=== PATIENT | female | born 1945 | race Caucasian/White ===

== ENCOUNTER 2018-06-16 05:36 | Inpatient (IN) ==
[2018-06-16] MEDS ORDERED: Chlorhexidine Gluconate 2% 1 Pack (2 Cloths) TOPICAL SCH (06:30)
[2018-06-16] MEDS ORDERED: Metoprolol Tartrate 25 MG Tablet PO SCH (06:30)
[2018-06-16] MEDS ORDERED: ceFAZolin 2 GM Premix Inj 2 GM/50 ML PIGGYBACK IV.SIG SCH (07:00)
[2018-06-16] MEDS ORDERED: Sodium Chlor 0.9% Inj 500 ML IV.SIG SCH (07:00)
[2018-06-16] MEDS ORDERED: Vancomycin Inj 1 GM/200 ML PIGGYBACK IV.SIG SCH (07:00)
[2018-06-16] MEDS ORDERED: Bupivacaine/Dextrose 0.75% Inj 2 ML Ampul ONE (07:04)
[2018-06-16] MEDS ORDERED: Famotidine PF Inj 20 MG/2 ML Vial ONE (07:09)
[2018-06-16] MEDS ORDERED: Sodium Chlor 0.9% Inj 60 ML, Bupivacaine Liposo PF 1.3% Inj 20 ML P-ARTICULR SCH ×2 (07:30)
[2018-06-16] MEDS ORDERED: TRANEXAMIC ACID IV.SIG SCH ×2 (07:30→10:30)
[2018-06-16] MEDS ORDERED: SODIUM CHLOR 0.9% IV.SIG SCH ×2 (07:30→10:30)
[2018-06-16] MEDS ORDERED: Post-op Orders (for Pharmacy) OTHER STA (09:52)
[2018-06-16] MEDS ORDERED: Bisacodyl 10 MG Supp RECTAL PRN (09:52)
[2018-06-16] MEDS ORDERED: Aluminum/Magnesium/Simethacone Susp 30 ML UDC PO PRN (09:52)
[2018-06-16] MEDS ORDERED: Tranexamic Acid Inj 1,000 MG in Sodium Chlor 0.9% Inj 100 ML IV.SIG ONE (09:52)
[2018-06-16] MEDS ORDERED: Naloxone Inj 0.4 MG/ML Vial IV.PUSH PRN ×2 (09:52→09:59)
[2018-06-16] MEDS ORDERED: Morphine Inj 30 MG/30 ML PCA.VIAL PCA PRN (09:59)
[2018-06-16] MEDS ORDERED: *morphine SULFATE 4 MG/ML PERIprocedure ONLY ONE (10:28)
[2018-06-16] MEDS ORDERED: Morphine Inj 30 MG/30 ML PCA.VIAL PCA ONE (10:39)
[2018-06-16] MEDS: Sod Chloride 0.9% Inj 1,000 ML IV.CONT SCH ×2 (10:56→18:21)
--- NOTE | 2018-06-16 11:20 | XR ---
EXAM DATE: 06/16/2018 11:17 AM EDT AGE/SEX: 72 years / Female INDICATIONS: Post op left total hip replacement. CLINICAL DATA: This is the patient's initial encounter. Patient reports that signs and symptoms have been present for 1 day and indicates a pain score of Nonresponsive. MEDICAL/SURGICAL HISTORY: Non-responsive. Non-responsive. COMPARISON: POI, MR HIP W/O CONTRAST, LEFT, 06/23/2016. . FINDINGS: Hip arthroplasty is in satisfactory position. The alignment is anatomic. CONCLUSION: Postsurgical changes as above. Electronically signed by: Cong Roberto MD 06/16/2018 11:19 AM EDT
[2018-06-16] MEDS: Ketorolac Inj 30 MG/ML (IVP) Vial IV.PUSH SCH ×2 (11:32→18:19)
--- NOTE | 2018-06-16 11:46 | MH ---
cc: Baldomero Madrid MD DATE OF ADMISSION: 06/16/2018 DIAGNOSIS: End-stage osteoarthritis, left hip. HISTORY OF PRESENT ILLNESS: She has had a problem with this left hip for quite a long time, with x-rays and MRI showing significant changes. She has consistently refused fluoroscopic-guided steroid injections. I have been following her for over 2 years. She has been managing with NSAIDs and [id number] medications. She presented to me recently, indicating that she could not get along with it any more. She has severe pain, she had to use a cane, and she had a distinct limp on this leg. X-rays revealed end-stage osteoarthritis. After informed consent, she is being brought here for a total hip replacement arthroplasty of the left hip. PAST HISTORY: History of hyperlipidemia, high blood pressure, arthritis, partial rotator cuff surgery, right shoulder done a few years ago by the undersigned, and she did very well from that. ALLERGIES: NO ALLERGIES. MEDICATIONS: She is on a blood pressure medication, calcium pill, and vitamins. SOCIAL HISTORY: She is retired. The diagnosis and the contemplated procedure and the potential risks, hazards, complications and expected results have all been discussed with the patient. Informed consent obtained. No guarantees made. PHYSICAL EXAMINATION: GENERAL: Reveals a 5 feet 6 inches tall, 170-pound white female who has distinct limp on the right leg. EXTREMITIES: She has mild, about 1/4 inch shortening of the right lower extremity, but that could be from pelvic tilt also. There is a significant pain on range of motion left lower extremity, but flexion can be done to about 80-90 degrees, but no rotation. She has palpable pedal pulses in the left foot, and she moves the toes well. HEENT: Head normocephalic. She wears glasses. Pupils react to light. Face symmetrical. HEART: Regular rate and rhythm. No murmurs. LUNGS: Clear to auscultation. ABDOMEN: Soft and supple. The diagnosis, the treatment, the prognosis, and the postoperative care, posthospital care, including intermediate facility, especially at her request because she lives alone, and prophylactic anticoagulation, etc., have all been discussed. MD BALWINDER Hinds/arianna/chidi , 10:26 AM , 10:35 AM
[2018-06-16] MEDS: ceFAZolin 2 GM Premix Inj 2 GM/50 ML PIGGYBACK IV.SIG SCH ×2 (12:36→18:05)
--- NOTE | 2018-06-16 12:37 | MP ---
cc: Baldomero Madrid MD DATE OF OPERATION: 06/16/2018 PREOPERATIVE DIAGNOSIS: Osteoarthritis, left hip. POSTOPERATIVE DIAGNOSIS: Osteoarthritis, left hip. OPERATIVE PROCEDURE: Total hip replacement arthroplasty, left hip, using Jerry Biomet components as follows: 1. Cup 56 mm with dome holes with 2 screws. 2. A 36 mm high wall liner. 3. A 13 mm standard offset Taperloc stem. 4. A 36 mm ceramic head with -3 neck length. SURGEON: Julius Alexandre MD ANESTHESIA: General. DESCRIPTION OF PROCEDURE: After induction of general anesthesia, the patient was placed in the left lateral position supported with Biomet positioners. Strict lateral position was ascertained. Axillary roll was placed. The right leg and the upper extremities were well protected. Left hip and left lower extremity thoroughly prepped with alcohol and ChloraPrep and draped in routine fashion, including adherent drapes. A standard lateral incision was made for a posterior approach. Incision deepened through subcutaneous tissue and then through the fascia and the fibers of the gluteus chris were . Bursa was dissected, followed by introduction of a Charnley retractor. Hip was internally rotated. The short external rotators and capsule were cut in a single cuff in an inverted L-shaped fashion with the vertical limb of the L along the intertrochanteric line and the horizontal one superior to the piriformis tendon. Hemostasis obtained with cautery. There was some old blood in the hip joint. The gluteus medius was elevated off the acetabulum and a 764 Steinmann pin was introduced, with the pin placed vertical to floor of the operating room and then the pin bent to 90 degrees to measure length and offset over the predetermined star on the greater trochanter. Hip was dislocated followed by femoral neck osteotomy, about 10-15 mm proximal to the lesser trochanter. Acetabulum was exposed. A limited capsulectomy and excision of the labrum and synovial tissue was carried out. The patient did have hypertrophic synovial tissue, indicating there is probably just an inflammatory component to this arthritis. Confines of the acetabulum were ascertained followed by reaming to 55 mm reamer, exposing bleeding subchondral bone. The cup was then impacted and placed in 45 degrees of abduction, 10 degrees anteversion and 2 dome screws were placed. The socket was cleaned out and a high wall liner impacted in place with the buildup posterior-superior. The femur was now prepared following routine technique of using a [employer] cutter canal finder and broaches and lateralizer. A 13 mm broach was introduced. Calcar reamer was used and trial reduction carried out with a -3 head, which gave good position and alignment, stability, and about 4 mm loss of offset and 4 mm of lengthening. Hip was dislocated, followed by introduction of a 13 mm stem in about 20 degrees anteversion and then reducing the hip with a ceramic 36 mm -3 head. Final position and alignment, stability, leg lengths were all good. The wound was irrigated with saline solution, followed by reapproximation of the cuff, the posterior capsule and short rotators with the first stitch placed at the gluteus medius attachment to the greater trochanter with a #2 Vicryl, and the second stitch placed through bone through a drill hole getting good repair. The wound was irrigated with saline solution. There was satisfactory hemostasis. The fascia was closed with a couple of interrupted #2 Vicryl sutures and then a running #2 Quill. The subcutaneous tissue was closed with 2-0 Vicryl and skin with 3-0 subcuticular Quill and Steri-Strips. Dressing applied with 4 x 4s, ABD, Medipore tape. The patient transferred to recovery room in satisfactory condition with an abduction pillow. The patient tolerated the procedure well. TRANSFUSIONS AND COMPLICATIONS: None. POSTOPERATIVE CONDITION: Satisfactory. PROGNOSIS: Good. ESTIMATED BLOOD LOSS: 350 mL MD BALWINDER Hinds/brody/chidi , 10:07 AM , 10:16 AM
[2018-06-16] MEDS ORDERED: fentaNYL Citrate Inj 100 MCG/2 ML Ampul ONE (14:00)
[2018-06-16] MEDS: Vancomycin Inj 1,000 MG in Sodium Chlor 0.9% Inj 250 ML IV.SIG SCH (20:30)
[2018-06-16] MEDS: Senna/Docusate Sodium 8.6/50 MG Tablet PO SCH (20:31)
[2018-06-17] MEDS: ceFAZolin 2 GM Premix Inj 2 GM/50 ML PIGGYBACK IV.SIG SCH (00:06)
[2018-06-17] MEDS: Ketorolac Inj 30 MG/ML (IVP) Vial IV.PUSH SCH ×5 (00:06→23:07)
[2018-06-17] MEDS: Sod Chloride 0.9% Inj 1,000 ML IV.CONT SCH ×3 (03:44→18:21)
[2018-06-17 05:20] LABS: Hematocrit 24.7 % (35.0-46.0); Hemoglobin 8.3 gm/dL (11.6-15.3)
[2018-06-17 05:59] LABS: Calcium 7.3 mg/dL (8.5-10.1); Carbon Dioxide 26.3 meq/L (21.0-32.0); Potassium 4.4 meq/L (3.5-5.1)
[2018-06-17 06:12] LABS: Total Protein 5.1 g/dL (6.4-8.2)
--- NOTE | 2018-06-17 07:35 | P.PNOP ---
Subjective Interval history: Doing well with no specific complaints Physical Exam Vital signs: Vital Signs 06/16/18 10:17 06/16/18 10:30 06/16/18 10:45 Temperature 96.1 F L Pulse Rate 85 77 77 Respiratory Rate 24 24 23 Blood Pressure 139/63 137/66 157/71 H Pulse Oximetry 100 100 100 06/16/18 11:00 06/16/18 11:15 06/16/18 11:30 Temperature 96.7 F L Pulse Rate 74 78 79 Respiratory Rate 14 16 16 Blood Pressure 159/74 H 148/69 H 145/70 H Pulse Oximetry 100 100 99 06/16/18 11:45 06/16/18 12:00 06/16/18 13:00 Temperature 96.8 F L 97.5 F L Pulse Rate 83 83 86 Respiratory Rate 18 16 17 Blood Pressure 143/70 H 144/74 H 155/70 H Pulse Oximetry 99 99 97 06/16/18 14:00 06/16/18 15:00 06/16/18 16:00 Temperature 97.9 F 97.9 F 98.7 F Pulse Rate 95 H 95 H 88 Respiratory Rate 20 20 17 Blood Pressure 132/91 H 144/57 H 166/78 H Pulse Oximetry 94 L 96 100 06/16/18 20:00 06/16/18 20:30 06/17/18 00:00 Temperature 97.6 F 98.4 F Pulse Rate 77 77 Respiratory Rate 16 17 Blood Pressure 127/73 107/58 L Pulse Oximetry 98 99 06/17/18 04:00 06/17/18 05:40 Temperature 97.8 F Pulse Rate 87 Respiratory Rate 18 Blood Pressure 138/59 L Pulse Oximetry 99 99 Intake & Output 06/16/18 06/17/18 06/17/18 18:59 06:59 18:59 Intake Total 3397.67 / 3397.67 1850 / 1850 Output Total 350 / 350 450 / 450 Balance 3047.67 / 3047.67 1400 / 1400 Weight 76.6 kg 76.9 kg Intake: IV 2317.67 / 2317.67 1400 / 1400 NS Inj 1,000 ML @ 125 mls/hr IV 1000 / 1000 1000 / 1000 .CONT .Q8H [facility] Rx#:[id number] Ofirmev Inj 1,000 mg In 100 ml 100 / 100 @ 400 mls/hr IV.SIG Q12H [facility] Rx #:[id number] LR 1000 mL Inj 1,000 ML @ 30 1000 / 1000 mls/hr IV.SIG .Q24H [facility] Rx#: [id number] Cyklokapron Inj 1,000 MG In NS 217.67 / 217.67 Inj 100 ML @ 200 mls/hr IV.SIG ONCE ONE Rx#:[id number] Vancomycin Inj 1,000 MG In NS 250 / 250 Inj 250 ML @ 250 mls/hr IV.SIG Q12H [facility] Rx#:[id number] Ancef 2 GM Premix Inj 2 gm In 100 / 100 50 / 50 50 ml @ 100 mls/hr IV.SIG Q6H [facility] Rx#:[id number] Oral 480 / 480 450 / 450 Anesthesia Amount 600 / 600 Output: Urine 0 / 0 450 / 450 Estimated Blood Loss 350 / 350 Other: Date of Last Bowel Movement 06/16/18 06/16/18 Narrative: She is awake, alert and oriented. She is in bed with an abduction pillow. She is in no obvious distress. Postop dressings are intact and dry. She moves her toes well. Results - Labs CBC & Chem 7: 06/17/18 04:09 06/17/18 04:09 Laboratory Results - last 24 hr 06/17/18 06/17/18 04:09 04:09 Hgb 8.3 L Hct 24.7 L Sodium 144 Potassium 4.4 Chloride 112 H Carbon Dioxide 26.3 Anion Gap 6 BUN 21 H Creatinine 0.91 Estimated GFR 60 L Random Glucose 135 H Calcium 7.3 L* Prot Corrected Calcium 8.4 L Total Protein 5.1 L D - Imaging Postoperative x-rays of the left hip show satisfactory position and alignment of total hip replacement. Impressions Hip X-Ray 06/16/18 09:51 CONCLUSION: Postsurgical changes as above. Assessment and Plan - Ortho Post Op Day # 1 - Assessment and Plan Patient is doing well. She will be started on iron for postop anemia. The long term facility tomorrow
[2018-06-17] MEDS: Multivitamin/Minerals Therapeutic Tablet PO SCH (09:19)
[2018-06-17] MEDS: Rivaroxaban 10 MG Tablet PO SCH (09:19)
[2018-06-17] MEDS: Lisinopril 5 MG Tablet PO SCH (09:19)
[2018-06-17] MEDS: Senna/Docusate Sodium 8.6/50 MG Tablet PO SCH ×2 (09:19→20:08)
[2018-06-17] MEDS: Vancomycin Inj 1,000 MG in Sodium Chlor 0.9% Inj 250 ML IV.SIG SCH (09:20)
[2018-06-18] MEDS: Sod Chloride 0.9% Inj 1,000 ML IV.CONT SCH ×2 (06:01→09:25)
[2018-06-18] MEDS: Ketorolac Inj 30 MG/ML (IVP) Vial IV.PUSH SCH (06:02)
[2018-06-18] MEDS: Rivaroxaban 10 MG Tablet PO SCH (09:12)
[2018-06-18] MEDS: Lisinopril 5 MG Tablet PO SCH (09:13)
[2018-06-18] MEDS: Multivitamin/Minerals Therapeutic Tablet PO SCH (09:13)
[2018-06-18] MEDS: Senna/Docusate Sodium 8.6/50 MG Tablet PO SCH ×2 (09:13→20:33)
--- NOTE | 2018-06-18 11:53 | P.PNOP ---
Subjective Interval history: Doing very well. No complaints. Physical Exam Vital signs: Vital Signs 06/17/18 12:00 06/17/18 16:00 06/17/18 20:00 Temperature 97.6 F 97.8 F 97.3 F L Pulse Rate 88 89 94 H Respiratory Rate 17 18 20 Blood Pressure 122/54 L 103/52 L 105/61 Pulse Oximetry 96 98 97 06/18/18 00:00 06/18/18 08:00 Temperature 98.1 F 98.1 F Pulse Rate 88 108 H Respiratory Rate 20 18 Blood Pressure 105/52 L 117/58 L Pulse Oximetry 98 96 Intake & Output 06/17/18 06/18/18 06/18/18 18:59 06:59 18:59 Intake Total 1300 / 1300 100 / 100 Balance 1300 / 1300 100 / 100 Intake: IV 100 / 100 100 / 100 Ofirmev Inj 1,000 mg In 100 ml 100 / 100 100 / 100 @ 400 mls/hr IV.SIG Q12H [facility] Rx #:[id number] Oral 1200 / 1200 Other: # Voids 6 Date of Last Bowel Movement 06/16/18 06/16/18 06/17/18 # Bowel Movements 0 Narrative: She is sitting out of bed, comfortable. New dressings are on the clean and dry. She moves her toes well. Results - Labs CBC & Chem 7: 06/17/18 04:09 06/17/18 04:09 Assessment and Plan - Assessment and Plan Patient is doing well. . The half-way facility tomorrow
[2018-06-19] MEDS: Senna/Docusate Sodium 8.6/50 MG Tablet PO SCH (09:48)
[2018-06-19] MEDS: Lisinopril 5 MG Tablet PO SCH (09:48)
[2018-06-19] MEDS: Multivitamin/Minerals Therapeutic Tablet PO SCH (09:49)
[2018-06-19] MEDS: Rivaroxaban 10 MG Tablet PO SCH (09:49)
--- NOTE | 2018-07-01 16:05 | MD ---
cc: Baldomero Madrid MD DATE OF DISCHARGE: 06/19/2018 ADMITTING DIAGNOSIS: End-stage osteoarthritis, left hip. DISCHARGE DIAGNOSIS: End-stage osteoarthritis, left hip. HISTORY: History consists of a long history of this problem which was treated nonoperatively. At this point she could not do activities of daily living without limping and need for analgesics. HOSPITAL COURSE: She was brought in after proper workup and informed consent and underwent total hip replacement arthroplasty of the left hip, which was basically uneventful. She was out of bed the next day and ambulated, weightbearing as tolerated. She was placed on Xarelto 10 mg daily for DVT prevention in addition to using mechanical means for prevention. The patient's postoperative course was satisfactory with appropriate postoperative labs and vital signs and rehabilitation. Postoperative x-rays were satisfactory. DISPOSITION: The patient was discharged to a group home facility because she lives alone and she has nobody to take care of her and she is not able to be independent as yet. She was discharged to a group home facility with appropriate orders for physical therapy, hydrocodone for pain, Xarelto for DVT prevention and appointments given for followup care. DISCHARGE CONDITION: Stable. The patient is improved. MD BALWINDER Hinds/CONNOR , 03:14 PM , 03:21 PM
== END 2018-06-19 14:08 ==
LOC: HSDI 05:36 → N06 15:52
PROVIDERS: ADMIT Orthopaedic Surgery; ATTEND Orthopaedic Surgery

== ENCOUNTER 2018-06-21 15:20 | Observation (INO) ==
[2018-06-21 16:50] LABS: Baso % (Auto) 0.3 % (0.0-2.0); Eos # (Auto) 0.2 th/mm3 (0.0-0.4); Eos % (Auto) 1.4 % (0.0-4.0); Hematocrit 21.5 % (35.0-46.0); Hemoglobin 7.5 gm/dL (11.6-15.3); Lymph # (Auto) 1.9 th/mm3 (1.0-4.8); Lymph % (Auto) 15.9 % (9.0-44.0); Mean Corpuscular HGB Conc 34.7 % (32.0-36.0); Mean Corpuscular Hemoglobin 30.5 pg (27.0-34.0); Mean Corpuscular Volume 87.9 fL (80.0-100.0); Mean Platelet Volume 9.3 fL (7.0-11.0); Mono # (Auto) 1.1 th/mm3 (0.0-0.9); Mono % (Auto) 9.1 % (0.0-8.0); Neut # (Auto) 8.7 th/mm3 (1.8-7.7); Neut % (Auto) 73.3 % (16.0-70.0); Platelet Count 285 th/mm3 (150-450); Red Blood Count 2.45 mil/mm3 (4.00-5.30); Red Cell Distribution Width 13.8 % (11.6-17.2); White Blood Count 11.8 th/mm3 (4.0-11.0)
[2018-06-21 16:55] LABS: Activated Partial Thrombo Time 30.5 sec (24.3-30.1); INR 1.1 Ratio; Prothrombin Time 11.3 sec (9.8-11.6)
[2018-06-21 17:00] LABS: Calcium 8.4 mg/dL (8.5-10.1); Carbon Dioxide 25.6 meq/L (21.0-32.0); Potassium 3.5 meq/L (3.5-5.1)
--- NOTE | 2018-06-21 18:05 | ED ---
HPI General Chief complaint: Recheck/Abnormal Lab/Rx Stated complaint: e Time Seen by Provider: 06/21/18 15:46 History of Present Illness HPI narrative: This is a 73-year-old female who had recent hip replace splint on the left side, who presents here for blood transfusion. Patient is currently at [facility] rehab. She states that she has been having positional dizziness. She had outpatient labs that showed her hemoglobin to be in the 6 range. She denies any chest pain, chest pressure. She does report orthostatic dizziness. She denies any bright red blood per rectum. She does state space started her on iron and her stools have been darker than normal. Related Data Home Medications Medication Instructions Recorded Confirmed atorvastatin 10 mg PO DAILY 06/10/18 06/21/18 lisinopril 5 mg PO DAILY 06/10/18 06/21/18 [id number]-vit K 1 tab PO DAILY 06/10/18 06/21/18 [Adults Multivitamin] Previous Rx's Medication Instructions Recorded ferrous fumarate [Hemocyte] 324 mg PO BID #0 tab 06/18/18 hydrocodone-acetaminophen 2 tab PO Q6H PRN #56 tab 06/18/18 rivaroxaban [Xarelto] 10 mg PO Q24H tab 06/18/18 Allergies Allergy/AdvReac Type Severity Reaction Status Date / Time No Known Allergies Allergy Verified 06/21/18 15:47 Review of Systems Except as stated in HPI: all other systems reviewed are negative Constitutional Reports system reviewed and no additional complaints, except as docu Eyes Denies blurry vision and Denies diplopia ENT Reports dizziness (Orthostatic) and Denies headache(s) Cardiovascular Denies chest pain, Denies palpitations, Denies dyspnea and Denies dyspnea on exertion Respiratory Denies cough, Denies hemoptysis and Denies dyspnea Gastrointestinal Denies hematochezia, Denies loose stools and Reports other (Dark stools when she started taking iron. ) Genitourinary Denies urinary frequency and Denies dysuria Musculoskeletal Reports other (Left hip pain, not new, improving from surgery.) Integumentary/Breasts Reports system reviewed and no additional complaints, except as docu Neurologic Denies vertigo, Reports dizziness (Orthostatic) and Denies headache(s) Psychiatric Reports system reviewed and no additional complaints, except as docu Endocrine Reports system reviewed and no additional complaints, except as docu [facility] Medical History Medical History Back pain (Acute) High cholesterol (Acute) Hypertension (Acute) Joint pain (Acute) Osteoarthritis (Acute) Surgical History Surgical History Status post left hip replacement (Acute) History of repair of right rotator cuff (Acute) Social History Social History Substance History: No History of Abuse Second Hand Smoke Exposure: No Smoking Status: Former smoker How Often Do You Have a Drink Containing Alcohol: Monthly or less Recent Travel in [facility] within the Last 8 Weeks: No Recent Out of Country Travel within the Last 8 Weeks: No Immunization History Tetanus Immunization: Unsure Hx Influenza Vaccine This Season: No Exam Narrative Exam Narrative: GENERAL: Well-nourished, well-developed patient, in no acute respiratory distress.. SKIN: Focused skin assessment warm/dry. HEAD: Normocephalic/atraumatic. EYES: No scleral icterus. No injection or drainage. NECK: Supple, trachea midline. CARDIOVASCULAR: Regular rate and rhythm with a rate of 94. Without murmurs, gallops, or rubs. RESPIRATORY: Breath sounds equal bilaterally. No accessory muscle use. GASTROINTESTINAL: Abdomen soft, non-tender, nondistended. RECTAL EXAM: No masses or tenderness, stool is brown. Heme negative. MUSCULOSKELETAL: No cyanosis. 1+ edema to the left lower extremity. She states this is actually improved since postsurgical day #1. Course Initial Documented Vital Signs Temperature 98.4 F 06/21/18 15:32 Pulse Rate 103 H 06/21/18 15:32 Respiratory Rate 18 06/21/18 15:32 Blood Pressure 133/63 06/21/18 15:32 Pulse Oximetry 95 06/21/18 15:32 Last Documented Vital Signs Temperature 98.6 F 06/21/18 18:09 Pulse Rate 98 H 06/21/18 18:08 Respiratory Rate 18 06/21/18 18:08 Blood Pressure 152/67 H 06/21/18 18:08 Pulse Oximetry 97 06/21/18 18:08 Medical Decision Making MDM Narrative Medical decision making narrative: 73-year-old female status post left hip replacement, presents here at the request of her assisted rehab physician for transfusion. Patient has been with orthostatic dizziness. She has a hemoglobin of 7.5. She will be transfused 2 units of red blood cells. [facility] who agrees with the observation admission. Differential Diagnosis Differential Diagnosis: Symptomatic anemia versus GI bleed versus postoperative anemia Lab Data Result diagrams: 06/21/18 15:50 06/21/18 15:50 Lab Results 06/21/18 06/21/18 06/21/18 Range/Units 15:50 15:50 15:50 WBC 11.8 H (4.0-11.0) th/mm3 RBC 2.45 L (4.00-5.30) mil/mm3 Hgb 7.5 L (11.6-15.3) gm/dL Hct 21.5 L (35.0-46.0) % MCV 87.9 (80.0-100.0) fL MCH 30.5 (27.0-34.0) pg MCHC 34.7 (32.0-36.0) % RDW 13.8 (11.6-17.2) % Plt Count 285 (150-450) th/mm3 MPV 9.3 (7.0-11.0) fL Neut % (Auto) 73.3 H (16.0-70.0) % Lymph % (Auto) 15.9 (9.0-44.0) % [place] % (Auto) 9.1 H (0.0-8.0) % Eos % (Auto) 1.4 (0.0-4.0) % Baso % (Auto) 0.3 (0.0-2.0) % Neut # (Auto) 8.7 H (1.8-7.7) th/mm3 Lymph # (Auto) 1.9 (1.0-4.8) th/mm3 [place] # (Auto) 1.1 H (0.0-0.9) th/mm3 Eos # (Auto) 0.2 (0.0-0.4) th/mm3 Baso # (Auto) 0.0 (0.0-0.2) th/mm3 WBC Differential . Differential Comment Auto diff final PT 11.3 (9.8-11.6) sec INR 1.1 Ratio APTT 30.5 H (24.3-30.1) sec Sodium (136-145) meq/L Potassium (3.5-5.1) meq/L Chloride (98-107) meq/L Carbon Dioxide (21.0-32.0) meq/L Anion Gap (5-15) meq/L BUN (7-18) mg/dL Creatinine (0.50-1.00) mg/dL Estimated GFR (>89) mL/min Random Glucose (74-106) mg/dL Calcium (8.5-10.1) mg/dL Blood Type O Positive Antibody Screen Negative MTS Gel Crossmatch 06/21/18 06/21/18 Range/Units 15:50 15:50 WBC (4.0-11.0) th/mm3 RBC (4.00-5.30) mil/mm3 Hgb (11.6-15.3) gm/dL Hct (35.0-46.0) % MCV (80.0-100.0) fL MCH (27.0-34.0) pg MCHC (32.0-36.0) % RDW (11.6-17.2) % Plt Count (150-450) th/mm3 MPV (7.0-11.0) fL Neut % (Auto) (16.0-70.0) % Lymph % (Auto) (9.0-44.0) % [place] % (Auto) (0.0-8.0) % Eos % (Auto) (0.0-4.0) % Baso % (Auto) (0.0-2.0) % Neut # (Auto) (1.8-7.7) th/mm3 Lymph # (Auto) (1.0-4.8) th/mm3 [place] # (Auto) (0.0-0.9) th/mm3 Eos # (Auto) (0.0-0.4) th/mm3 Baso # (Auto) (0.0-0.2) th/mm3 WBC Differential Differential Comment PT (9.8-11.6) sec INR Ratio APTT (24.3-30.1) sec Sodium 141 (136-145) meq/L Potassium 3.5 (3.5-5.1) meq/L Chloride 108 H (98-107) meq/L Carbon Dioxide 25.6 (21.0-32.0) meq/L Anion Gap 7 (5-15) meq/L BUN 22 H (7-18) mg/dL Creatinine 1.06 H (0.50-1.00) mg/dL Estimated GFR 51 L (>89) mL/min Random Glucose 117 H (74-106) mg/dL Calcium 8.4 L (8.5-10.1) mg/dL Blood Type Antibody Screen MTS Gel Crossmatch See Detail Discharge Plan Discharge Disposition Patient Disposition: 30 Still Patient Discharge Details Diagnosis: Symptomatic anemia, Status post left hip replacement Physicians Team ED Provider: Michael Flynn Primary Care Provider: Danie Stevenson Attending Provider: Daljit Golden Status ED Status: Admitted Observation Patient
[2018-06-21] MEDS ORDERED: Acetaminophen 325 MG Tablet PO PRN (19:49)
--- NOTE | 2018-06-21 20:49 | P.HPIM ---
History of Present Illness Primary Care Physician: Danie Stevenson DO Chief Complaint: dizziness History of Present Illness: 73 y/o female with a recent hip replacement that was sent from [facility] for dizziness and a hemoglobin of 6 on outpatient lab work. Patient states 2 days ago she complained of dizziness and today they completed lab work and she was found to have a 6.0 hemoglobin. She states today she felt ok and was able to complete physical therapy. She had a hip replacement last week and had a hemoglobin of 8.3 on 06/17. She denies any active bleeding, or blood in her stools. Denies any chest pain, sob, fever or chills. PMFSH - History History Provided By: Patient - Medical History Medical History: Medical History (Last Reviewed 06/21/18 @ 15:35 by Cary Astorga) Back pain High cholesterol Hypertension Joint pain Osteoarthritis - Surgical History Surgical History: Surgical History (Last Updated 06/21/18 @ 15:36 by Cary Astorga) Status post left hip replacement History of repair of right rotator cuff - Tobacco History Second Hand Smoke Exposure: No Smoking Status: Former smoker - Alcohol History How Often Do You Have a Drink Containing Alcohol: Monthly or less - Substance Use History Substance History: No History of Abuse - Travel History Recent Travel in the [place] Within the Last 8 Weeks: No Recent Travel Out of the Country Within the Last 8 Weeks: No - Immunization History Tetanus Immunization: Unsure Hx Influenza Vaccine This Season: No Medications and Allergies Active Medications: Active Medications Acetaminophen (Tylenol) 650 mg PO Q4H PRN PRN Reason: Temp > 100.4 Atorvastatin Calcium (Lipitor) 10 mg PO DAILY [facility] Ferrous Fumarate (Hemocyte) 324 mg PO BID [facility] Lisinopril (Prinivil) 5 mg PO DAILY [facility] Multivitamins/Minerals (Theragran-M) 1 tab PO DAILY [facility] Ondansetron HCl (Zofran Odt) 4 mg PO Q6H PRN PRN Reason: NAUSEA OR VOMITING Rivaroxaban (Xarelto) 10 mg PO Q24H [facility] Sodium Chloride (Ns Flush) 2 ml IV.FLUSH PRN PRN PRN Reason: FLUSH AFTER USING IV ACCESS Allergies Allergy/AdvReac Type Severity Reaction Status Date / Time No Known Allergies Allergy Verified 06/21/18 15:47 Home Medications Medication Instructions Recorded Confirmed Type atorvastatin 10 mg PO DAILY 06/10/18 06/21/18 History lisinopril 5 mg PO DAILY 06/10/18 06/21/18 History [id number]-vit K 1 tab PO DAILY 06/10/18 06/21/18 History [Adults Multivitamin] Exam Vital signs: Vital Signs 06/21/18 15:32 06/21/18 15:50 06/21/18 17:53 Temperature 98.4 F 98.6 F Pulse Rate 103 H 98 H Respiratory Rate 18 20 Blood Pressure 133/63 145/68 H Pulse Oximetry 95 98 06/21/18 18:08 06/21/18 18:09 06/21/18 19:49 Temperature 98.6 F 98.6 F 98.5 F Pulse Rate 98 H 102 H Respiratory Rate 18 20 Blood Pressure 152/67 H 132/59 L Pulse Oximetry 97 96 Intake & Output 06/21/18 06/21/18 06/22/18 06:59 18:59 06:59 Intake Total 0 / 0 Balance 0 / 0 Weight 78.018 kg Intake: Intake (Blood Product) Amt 0 / 0 Rbc As-3 Leukoreduced Unit 0 / 0 [id number] Narrative: GENERAL: This is a well-nourished, well-developed patient, in no apparent distress. SKIN: Dressing dry and intact CARDIOVASCULAR: Regular rate and rhythm without murmurs, gallops, or rubs. RESPIRATORY: Clear to auscultation. Breath sounds equal bilaterally. No wheezes , rales, or rhonchi. GASTROINTESTINAL: Abdomen soft, non-tender, nondistended. Normal active bowel sounds MUSCULOSKELETAL: Extremities without clubbing, cyanosis, or edema. NEURO: Alert & Oriented x4 to person, place, time, situation. Moves all ext x4 Results - Labs CBC & Chem 7: 06/21/18 15:50 06/21/18 15:50 Labs: Short CBC 06/21/18 Range/Units 15:50 WBC 11.8 H (4.0-11.0) th/mm3 Hgb 7.5 L (11.6-15.3) gm/dL Hct 21.5 L (35.0-46.0) % Plt Count 285 (150-450) th/mm3 BMP 06/21/18 15:50 Sodium 141 Potassium 3.5 Chloride 108 H Carbon Dioxide 25.6 BUN 22 H Creatinine 1.06 H Calcium 8.4 L Caprini VTE Risk Assessment Caprini VTE Risk Assessment: Moderate/High Risk (score >= 2) Caprini Risk Assessment Model: Point Value = 1 Point Value = 2 Point Value = 3 Point Value = 5 Age 41-60 Minor surgery BMI > 25 kg/m2 Swollen legs Varicose veins or History of unexplained or recurrent spontaneous Oral contraceptives or hormone replacement Sepsis (< 1 month) Serious lung disease, including pneumonia (< 1 month) Abnormal pulmonary function Acute myocardial infarction Congestive heart failure (< 1 month) History of inflammatory bowel disease Medical patient at bed rest Age 61-74 Arthroscopic surgery Major open surgery (> 45 min) Laparoscopic surgery (> 45 min) Malignancy Confined to bed (> 72 hours) Immobilizing plaster cast Central venous access Age >= 75 History of VTE Family history of VTE Factor V Leiden Prothrombin [id number] Lupus anticoagulant Anticardiolipin antibodies Elevated serum homocysteine Heparin-induced thrombocytopenia Other congenital or acquired thrombophilia Stroke (< 1 month) Elective arthroplasty Hip, pelvis, or leg fracture Acute spinal cord injury (< 1 month) Prophylaxis Regimen: Total Risk Factor Score Risk Level Prophylaxis Regimen 0-1 Low Early ambulation 2 Moderate Order ONE of the following: *Sequential Compression Device (SCD) *Heparin 5000 units SQ BID 3-4 Higher Order ONE of the following medications: *Heparin 5000 units SQ TID *Enoxaparin/Lovenox 40 mg SQ daily (WT < 150 kg, CrCl > 30 mL/min) *Enoxaparin/Lovenox 30 mg SQ daily (WT < 150 kg, CrCl > 10-29 mL/min) *Enoxaparin/Lovenox 30 mg SQ BID (WT < 150 kg, CrCl > 30 mL/min) AND/OR *Sequential Compression Device (SCD) 5 or more Highest Order ONE of the following medications: *Heparin 5000 units SQ TID (Preferred with Epidurals) *Enoxaparin/Lovenox 40 mg SQ daily (WT < 150 kg, CrCl > 30 mL/min) *Enoxaparin/Lovenox 30 mg SQ daily (WT < 150 kg, CrCl > 10-29 mL/min) *Enoxaparin/Lovenox 30 mg SQ BID (WT < 150 kg, CrCl > 30 mL/min) AND *Sequential Compression Device (SCD) Assessment and Plan - Plan 73 y/o female with a recent hip replacement that was sent from [facility] for dizziness and a hemoglobin of 6 on outpatient lab work. Symptomatic anemia, hgb 7.5, likely secondary to surgery -Transfuse 2 units prbcs -BMP in am -Hemoccult stool ordered -Cont home iron pills -hold Xarelto Left lower extremity edema, likely due to surgery, r/o dvt -Doppler US ordered, reviewed and negative for dvt -Pain management with PO norco Hypertension, chronic -Resume home medications, monitor vitals DVT prophylaxis: SCDs, hold xarelto for now Discussed Condition With: Patient and RN
--- NOTE | 2018-06-21 23:07 | US ---
EXAM DATE: 06/21/2018 10:59 PM EDT AGE/SEX: 73 years / Female INDICATIONS: Left leg swelling after hip surgery. CLINICAL DATA: This is the patient's initial encounter. Patient reports that signs and symptoms have been present for 2 days and indicates a pain score of 0/10. MEDICAL/SURGICAL HISTORY: Hypercholesterolemia. Hypertension. Osteoarthritis. . Right rotator cuff repair. Left hip replacement. COMPARISON: No prior exams available for comparison. TECHNIQUE: Venous ultrasound of both lower extremities was performed from the inguinal ligament to t he proximal calf. Real-time, color Doppler and spectral tracing, compression and augmentation techni ques were used. FINDINGS: Normal compression of the deep venous system from the inguinal region to the proximal calf . No echogenic clot is seen. Normal response of the venous system to augmentation and respiration. CONCLUSION: 1. Negative for deep venous thrombosis. Electronically signed by: Jerry Cruz MD 06/21/2018 11:06 PM EDT
[2018-06-22 06:25] LABS: Baso % (Auto) 0.5 % (0.0-2.0); Eos # (Auto) 0.2 th/mm3 (0.0-0.4); Eos % (Auto) 2.4 % (0.0-4.0); Hematocrit 27.3 % (35.0-46.0); Hemoglobin 9.4 gm/dL (11.6-15.3); Lymph # (Auto) 1.3 th/mm3 (1.0-4.8); Lymph % (Auto) 14.8 % (9.0-44.0); Mean Corpuscular HGB Conc 34.5 % (32.0-36.0); Mean Corpuscular Hemoglobin 30.2 pg (27.0-34.0); Mean Corpuscular Volume 87.3 fL (80.0-100.0); Mean Platelet Volume 8.7 fL (7.0-11.0); Mono # (Auto) 0.8 th/mm3 (0.0-0.9); Mono % (Auto) 8.9 % (0.0-8.0); Neut # (Auto) 6.3 th/mm3 (1.8-7.7); Neut % (Auto) 73.4 % (16.0-70.0); Platelet Count 267 th/mm3 (150-450); Red Blood Count 3.12 mil/mm3 (4.00-5.30); Red Cell Distribution Width 13.8 % (11.6-17.2); White Blood Count 8.5 th/mm3 (4.0-11.0)
[2018-06-22 06:51] LABS: Carbon Dioxide 24.4 meq/L (21.0-32.0); Potassium 3.8 meq/L (3.5-5.1)
[2018-06-22] MEDS ORDERED: Lisinopril 5 MG Tablet PO SCH (09:00)
[2018-06-22] MEDS ORDERED: Multivitamin/Minerals Therapeutic Tablet PO SCH (09:00)
[2018-06-22] MEDS ORDERED: Rivaroxaban 10 MG Tablet PO SCH (09:00)
--- NOTE | 2018-06-22 10:27 | P.DS ---
Date of admission: 06/21/18 18:20 Primary care physician: Danie Stevenson DO Brief History from admission: 73 y/o female with a recent hip replacement that was sent from [facility] for dizziness and a hemoglobin of 6 on outpatient lab work. Patient states 2 days ago she complained of dizziness and today they completed lab work and she was found to have a 6.0 hemoglobin. She states today she felt ok and was able to complete physical therapy. She had a hip replacement last week and had a hemoglobin of 8.3 on 06/17. She denies any active bleeding, or blood in her stools. Denies any chest pain, sob, fever or chills. DS: Diagnosis - Discharge Diagnosis (1) Symptomatic anemia Status: Acute (2) Status post left hip replacement Status: Acute DS: Medications - Discharge Medications Prescriptions: hydrocodone-acetaminophen 1 tab PO Q6H PRN #12 tab PRN Reason: Pain Scale 5 To 10 DS: Summary Hospital Course: Ms. Weeks is a pleasant 73-year-old female with a history of hip replacement on 06/16/2018 who returned to the hospital on 06/21/2018 due to symptomatic anemia. At [facility], her hemoglobin was apparently 6.0. On arrival her hemoglobin was found to be 7.5. Patient received blood transfusion. Repeat hemoglobin was 9.4. Patient remained hemodynamically stable. At this point will continue Xarelto for DVT prophylaxis for total 35 days since surgery. Her anemia was likely due to hip surgery and not GI blood loss. Patient's orthopedic surgeon also discussed the possibility of transient anemia after surgery. No fever or chills. No chest pain, shortness of breath. She denies any dark stool. However she takes iron supplements and she did notice dark stool before. We would recommend repeating hemoglobin level in 2-3 days. If hemoglobin drops significantly, further workup including GI workup should be considered. Also if hemoglobin drops, consider discussing with patient's orthopedic surgeon regarding DVT prophylaxis. - Time Spent with Patient Total time spent providing and/or coordinating discharge services: Less than 30 minutes Exam Vital signs: Vital Signs 06/21/18 15:32 06/21/18 15:50 06/21/18 17:53 Temperature 98.4 F 98.6 F Pulse Rate 103 H 98 H Respiratory Rate 18 20 Blood Pressure 133/63 145/68 H Pulse Oximetry 95 98 06/21/18 18:08 06/21/18 18:09 06/21/18 19:49 Temperature 98.6 F 98.6 F 98.5 F Pulse Rate 98 H 102 H Respiratory Rate 18 20 Blood Pressure 152/67 H 132/59 L Pulse Oximetry 97 96 06/21/18 21:10 06/21/18 22:24 06/22/18 04:00 Temperature 98.5 F 97.7 F 98.1 F Pulse Rate 92 H 93 H 94 H Respiratory Rate 20 16 16 Blood Pressure 148/65 H 166/79 H 170/75 H Pulse Oximetry 97 95 06/22/18 08:00 Temperature 98.4 F Pulse Rate 86 Respiratory Rate 18 Blood Pressure 154/72 H Pulse Oximetry 98 Intake & Output 06/21/18 06/22/18 06/22/18 18:59 06:59 18:59 Intake Total 0 / 0 820 / 820 Balance 0 / 0 820 / 820 Weight 78.018 kg Intake: Oral 420 / 420 Intake (Blood Product) Amt 0 / 0 400 / 400 Rbc As-3 Leukoreduced Unit 0 / 0 400 / 400 [id number] Other: # Voids 2 Date of Last Bowel Movement 06/22/18 Narrative: GENERAL: Alert, oriented 3, NAD. SKIN: Warm and dry. HEAD: Normocephalic. EYES: No scleral icterus. No injection or drainage. NECK: Supple, trachea midline. No JVD or lymphadenopathy. CARDIOVASCULAR: Regular rate and rhythm without murmurs, gallops, or rubs. RESPIRATORY: Breath sounds equal bilaterally. No accessory muscle use. GASTROINTESTINAL: Abdomen soft, non-tender, nondistended. MUSCULOSKELETAL: No cyanosis, or edema. BACK: Nontender without obvious deformity. No CVA tenderness. Results Procedures completed during hospitalization: None Labs on day of discharge: Labs from last 24 hours 06/22/18 06/22/18 06/21/18 05:20 05:20 15:50 WBC 8.5 RBC 3.12 L Hgb 9.4 L Hct 27.3 L MCV 87.3 MCH 30.2 MCHC 34.5 RDW 13.8 Plt Count 267 MPV 8.7 Neut % (Auto) 73.4 H Lymph % (Auto) 14.8 [place] % (Auto) 8.9 H Eos % (Auto) 2.4 Baso % (Auto) 0.5 Neut # (Auto) 6.3 Lymph # (Auto) 1.3 [place] # (Auto) 0.8 Eos # (Auto) 0.2 Baso # (Auto) 0.0 WBC Differential . Differential Comment Auto diff final PT INR APTT Sodium 143 Potassium 3.8 Chloride 110 H Carbon Dioxide 24.4 Anion Gap 9 BUN 14 Creatinine 0.81 Estimated GFR 69 L Random Glucose 96 Calcium 8.0 L Blood Type Antibody Screen MTS Gel Crossmatch See Detail 06/21/18 06/21/18 06/21/18 15:50 15:50 15:50 WBC RBC Hgb Hct MCV MCH MCHC RDW Plt Count MPV Neut % (Auto) Lymph % (Auto) [place] % (Auto) Eos % (Auto) Baso % (Auto) Neut # (Auto) Lymph # (Auto) [place] # (Auto) Eos # (Auto) Baso # (Auto) WBC Differential Differential Comment PT 11.3 INR 1.1 APTT 30.5 H Sodium 141 Potassium 3.5 Chloride 108 H Carbon Dioxide 25.6 Anion Gap 7 BUN 22 H Creatinine 1.06 H Estimated GFR 51 L Random Glucose 117 H Calcium 8.4 L Blood Type O Positive Antibody Screen Negative MTS Gel Crossmatch 06/21/18 15:50 WBC 11.8 H RBC 2.45 L Hgb 7.5 L Hct 21.5 L MCV 87.9 MCH 30.5 MCHC 34.7 RDW 13.8 Plt Count 285 MPV 9.3 Neut % (Auto) 73.3 H Lymph % (Auto) 15.9 [place] % (Auto) 9.1 H Eos % (Auto) 1.4 Baso % (Auto) 0.3 Neut # (Auto) 8.7 H Lymph # (Auto) 1.9 [place] # (Auto) 1.1 H Eos # (Auto) 0.2 Baso # (Auto) 0.0 WBC Differential . Differential Comment Auto diff final PT INR APTT Sodium Potassium Chloride Carbon Dioxide Anion Gap BUN Creatinine Estimated GFR Random Glucose Calcium Blood Type Antibody Screen MTS Gel Crossmatch - Impressions ITS Impressions Venous Doppler Study 06/21/18 00:00 CONCLUSION: 1. Negative for deep venous thrombosis. Discharge Plan - Discharge Disposition Patient Disposition: 03 Discharge to SNF - Discharge Condition Condition: Good - Discharge Order Discharge Orders: Discharge Order (Routine); Ordered 06/22/18 Ordered By: Kimberly Henderson - Discharge Details Anticipated Discharge Date: 06/22/18 - Physicians Team Primary Care Provider: Danie Stevenson Attending Provider: Kimberly Henderson Other Providers: [employer]
[2018-06-22 12:16] VITALS: BP 133/60; PULSE 93; RESP 20; TEMP 98.2; O2SAT 95
== END 2018-06-22 15:47 ==
LOC: NEDA 15:20 → NEPFCDU 15:20 → NEPC 15:20 → NEPFCDU 21:34
PROVIDERS: ADMIT Hospitalist; ATTEND Hospitalist